=== PATIENT | male | born 1940 | race Caucasian/White ===

== ENCOUNTER 2021-02-26 03:57 | Inpatient (IN) | payer MEDICARE, OTHER ==
[~2021-02-26] VITALS: Ht 180.3 cm; Wt 95.2 kg
[~2021-02-26 03:57] MED LIST: ASPI-612 PO; ATOR20TA PO; DIPH-423 PO; HYT1T PO; LATA2.5D6 RIGHTEYE; PANT40TA39 PO; PER5325T PO
[2021-02-26] MEDS ORDERED: aspirin 81mg tab.chew PO ONE (04:15)
[2021-02-26 04:28] LABS: BASOPHILS % (AUTO) 0.7 % (0-1); EOSINOPHILS # (AUTO) 0.3 X10'3 (0-0.9); EOSINOPHILS % (AUTO) 5.7 % (0-6); HEMATOCRIT 36.2 % (42.0-52.0); HEMOGLOBIN 12.3 g/dl (14.0-17.9); LYMPHOCYTES % (AUTO) 20.3 % (21-51); MEAN CORPUSCULAR HEMOGLOBIN 32.1 PG (27.0-31.0); MEAN CORPUSCULAR HGB CONC 33.9 g/dL (33.0-36.5); MEAN CORPUSCULAR VOLUME 94.6 FL (78-98); MEAN PLATELET VOLUME 8.8 FL (7.4-10.4); MONOCYTES # (AUTO) 0.6 X10'3 (0-0.9); MONOCYTES % (AUTO) 11.8 % (2-12); NEUTROPHILS # (AUTO) 3.1 X10'3 (1.8-7.7); NEUTROPHILS % (AUTO) 61.5 % (42-75); PLATELET COUNT 145 X10'3 (140-440); RED BLOOD COUNT 3.83 X10'6 (4.70-6.10); RED CELL DISTRIBUTION WIDTH 13.2 % (11.5-14.5)
[2021-02-26] MEDS: nitroGLYCERIN 0.4mg SUBLingual tab SL PRN ×3 (04:32→05:10)
[2021-02-26 04:42] LABS: ALANINE AMINOTRANSFERASE 47 U/L (12-78); ALBUMIN 3.3 G/DL (3.4-5.0); ALKALINE PHOSPHATASE 59 IU/L (46-116); ANION GAP 10 (8-16); ASPARTATE AMINO TRANSFERASE 32 U/L (10-37); BILIRUBIN,TOTAL 0.2 MG/DL (0.1-1.0); BLOOD UREA NITROGEN 19 MG/DL (7-18); BUN/CREATININE RATIO 19.8 (5.4-32.0); CALCIUM 8.2 MG/DL (8.5-10.1); CHLORIDE 108 MMOL/L (99-107); CREATININE 0.96 MG/DL (0.60-1.10); GLUCOSE 122 MG/DL (70-104); POTASSIUM 3.6 MMOL/L (3.5-5.1); SODIUM 142 MMOL/L (135-145); TOTAL CARBON DIOXIDE 23.6 MMOL/L (24-32); TOTAL PROTEIN 6.6 G/DL (6.4-8.2); eGFR 75 ML/MIN
[2021-02-26] MEDS ORDERED: ondansetron/PF 4mg/2ml inj IV ONE (05:10)
[2021-02-26] MEDS ORDERED: morphine 4 MG/ML inj SYRINge IV ONE (05:10)
[2021-02-26] MEDS ORDERED: MESSAGE TO NURSING PO ONE ×3 (05:30→19:55)
[2021-02-26] MEDS ORDERED: potassium CL 10mEq/100ml bag 100 ML IV PRN (07:45)
[2021-02-26] MEDS ORDERED: magnesium hydroxide 30ml (MOM) UD suspension PO PRN (07:45)
[2021-02-26] MEDS ORDERED: potassium Cl 20 mEq SR tablet PO PRN ×2 (07:45)
[2021-02-26] MEDS ORDERED: magnesium 4gm in 100ml NS 100 ML IV PRN (07:45)
[2021-02-26] MEDS ORDERED: magnesium Cl slow-release 64mg tablet PO PRN (07:45)
[2021-02-26] MEDS ORDERED: mag hydrox/Alum hydrox/simeth 30ml oral suspension PO PRN (07:45)
[2021-02-26] MEDS ORDERED: morphine 2 MG/ML inj. syringe IV PRN ×2 (07:45)
[2021-02-26] MEDS ORDERED: ondansetron/PF 4mg/2ml inj IV PRN ×2 (07:45→18:00)
[2021-02-26] MEDS ORDERED: acetaminophen 325mg tablet PO PRN (07:45)
[2021-02-26] MEDS ORDERED: magnesium 2GM in 50ml NS 50 ML IV PRN (07:45)
[2021-02-26] MEDS ORDERED: enoxaparin 40mg/0.4ml syringe SUBCUT SCH (08:00)
[2021-02-26] MEDS ORDERED: NORepinephrine 1 mg/ml inj IV ONE (08:00)
[2021-02-26] MEDS ORDERED: sodium bicarbonate (8.4%) 1 mEq/ml syringe ONE (08:00)
[2021-02-26] MEDS: docusate sod 100mg capsule PO SCH ×2 (08:00→23:18)
[2021-02-26] MEDS ORDERED: calcium chloride 100 MG/1 ML inj IV ONE (08:00)
[2021-02-26] MEDS ORDERED: albumin (human) 25% 100 ML IV solution IV ONE (08:00)
[2021-02-26] MEDS ORDERED: papaverine 30 mg/ml 2ml inj. ONE (08:00)
[2021-02-26] MEDS ORDERED: heparin 1,000 units/ml 10ml inj ONE (08:00)
[2021-02-26] MEDS ORDERED: LIDOcaine 2% (20 mg/ml) 5ml cardiac syringe ONE (08:00)
[2021-02-26] MEDS: K and/or MAG REPLACEMENT MC SCH ×2 (08:00→20:00)
[2021-02-26] MEDS ORDERED: MAGNESIUM SULFATE 4 MEQ/ML (5gm/10ml) injection ONE (08:00)
[2021-02-26] MEDS ORDERED: aminocaproic acid 250 MG/1 ML inj. ONE (08:00)
[2021-02-26] MEDS ORDERED: heparin 10,000 units/1 ML INJ ONE (08:00)
[2021-02-26] MEDS ORDERED: potassium Cl 2 mEq/ml inj IV ONE (08:00)
[2021-02-26] MEDS ORDERED: phenylephrine 10mg/ml inj. ONE (08:00)
[2021-02-26] MEDS ORDERED: methylPREDNISolone sod succ 1000mg vial ONE (08:00)
[2021-02-26] MEDS: normal saline 1000ml 1,000 ML IV SCH ×2 (08:40→17:45)
--- NOTE | 2021-02-26 08:51 | NUR ---
STEEL CHECKER AT BEDSIDE.
--- NOTE | 2021-02-26 11:01 | NUR ---
leon tool turret lathe set up operator at bedside.
[2021-02-26] MEDS ORDERED: CLOB30CR11 TOP (13:11)
[2021-02-26] MEDS ORDERED: ALFU10TA10 PO (13:11)
[2021-02-26] MEDS ORDERED: PANT20TA18 PO (13:11)
[2021-02-26] MEDS ORDERED: DOCU-342 PO (13:11)
[2021-02-26] MEDS ORDERED: CHLO473M2 PO (13:11)
[2021-02-26] MEDS ORDERED: NAPR220T67 PO (13:11)
[2021-02-26] MEDS ORDERED: SENN-137 PO (13:11)
[2021-02-26] MEDS ORDERED: clobetasol propionate ointment 15gm TP PRN (13:30)
[2021-02-26] MEDS ORDERED: docusate sod 100mg capsule PO PRN (13:30)
[2021-02-26] MEDS ORDERED: sennosides/docusate sodium tablet PO PRN (13:30)
[2021-02-26 15:00] VITALS: BP 156/81
[2021-02-26] MEDS ORDERED: verapamil 2.5 mg/ml inj IV ONE (15:01)
[2021-02-26] MEDS ORDERED: nitroGLYCERIN-Tridil 50MG/D5W 250 ML IV ONE (15:01)
[2021-02-26] MEDS ORDERED: heparin 1,000unit/ml 10ml vial 10 ML ONE (15:01)
[2021-02-26] MEDS ORDERED: LIDOcaine 1% (10mg/ml)w/preservative injection 20ml MDV ONE (15:01)
[2021-02-26] MEDS ORDERED: iohexol 350MG/ML 100ml bottle IV ONE (15:02)
--- NOTE | 2021-02-26 15:23 | NUR ---
SBAR HANDOFF REPORT GIVEN TO INDRA LEUNG IN PCU .
--- NOTE | 2021-02-26 16:21 | NUR ---
PAGER ID: [phone] MESSAGE: Re: Jeff Wilson. Room: 3028A. Do you want Protonix drip started on Pt? -Juan [facility] #[id number] -Dr. Loza paged concerning med orders
[2021-02-26] MEDS ORDERED: midazolam 1 mg/ML 2ml injection ONE (16:56)
[2021-02-26] MEDS ORDERED: fentaNYL/PF 50MCG/1 ML 2ML syringe ONE (16:56)
[2021-02-26] MEDS ORDERED: iohexol 350 MG/ML 50ML vial IV ONE (17:19)
--- NOTE | 2021-02-26 17:20 | NUR ---
PAGER ID: [phone] MESSAGE: Re: Jeff Wilson. Room: 3028A. Protonix drip ordered for Pt. Do you want this drip started on Pt? -Juan [facility] #[id number] -Dr. Loza paged concerning Med orders.
[2021-02-26] MEDS ORDERED: non-formulary drug (Pantoprazole Sodium (Protonix) 1 TAB) PO SCH (17:30)
--- NOTE | 2021-02-26 17:52 | NUR ---
Pt returned from seed laboratory technician. vitals WNL. Pt will be lying flat for 4 hours. Will continue to monitor as needed.
[2021-02-26 18:00] VITALS: BP_SYST 102; BP_SYST 141; BP_DIAS 65; BP_DIAS 66
[2021-02-26] MEDS ORDERED: chlorhexidine gluconate 15ml Cup****oral rinse MM SCH (18:00)
[2021-02-26] MEDS ORDERED: OXAZEpam 15mg capsule PO PRN (18:00)
[2021-02-26] MEDS ORDERED: proCHLORperazine 10 MG/2 ml inj IV PRN (18:00)
--- NOTE | 2021-02-26 18:00 | NUR ---
[employer] documentation: I have reviewed and agree with all interventions, assessments performed and documented by Suhas LEUNG.
[2021-02-26 18:15] VITALS: BP 136/69
--- NOTE | 2021-02-26 18:15 | NUR ---
Problems reprioritized. Patient report given, questions answered & plan of care reviewed with Myra LEUNG.
--- NOTE | 2021-02-26 19:09 | NUR ---
report from MADHU Martinez. All questions and concerns answered.
[2021-02-26] MEDS ORDERED: dextrose 50%-water 50ml dispensing syringe IV PRN (19:40)
[2021-02-26] MEDS ORDERED: pantoprazole 40MG/NS 100ML BAG 100 ML IV SCH (20:00)
[2021-02-26] MEDS ORDERED: atorvastatin 20mg tablet PO SCH (21:00)
[2021-02-26 22:04] LABS: PARTIAL THROMBOPLASTIN TIME 33 SECONDS (22-32)
[2021-02-26] MEDS ORDERED: heparin 10,000 units/1 ML INJ IV PRN (22:10)
[2021-02-26] MEDS ORDERED: heparin 10,000 units/1 ML INJ IV ONE (22:10)
[2021-02-26] MEDS ORDERED: heparin 25,000 UNIT/250ml bag 250 ML IV SCH (22:10)
[2021-02-26] MEDS: tamsulosin 0.4mg capsule PO SCH (23:18)
[2021-02-27] VITALS (17 sets, daily range): BP systolic 88–139; BP diastolic 46–68
[2021-02-27] MEDS ORDERED: MESSAGE TO NURSING PO ONE ×3 (01:30→05:30)
[2021-02-27 02:19] LABS: ABG HCO3 22.2 mmol/L (22.0-26.0); ABG OXYGEN SATURATION 92.8 % (94-97); ABG PO2 (T) 65.9 mmHg (75.0-100.0); ALLEN'S TEST Modified; FCOHb 0.1 % (0.0-3.9); FMetHb 0.2 % (0.0-1.5); FO2Hb 92.5 % (94-97); TOTAL HEMOGLOBIN 12.4 G/dl (14.0-18.0)
[2021-02-27] MEDS: normal saline 1000ml 1,000 ML IV SCH (03:45)
[2021-02-27] MEDS: Insulin Reg/NS 100units/100mL 100 ML IV SCH (05:30)
[2021-02-27] MEDS ORDERED: insulin glargine (Lantus) pen - multi-dose SQ PRN ×2 (05:30→15:30)
[2021-02-27] MEDS ORDERED: cefazolin/dext.iso 2gm/50ml 50 ML IV ONE (05:30)
[2021-02-27] MEDS ORDERED: MALTODEXTRIN/FRUCTOSE 0.68 KCAL/ML LIQUID 296ML BOTTLE PO ONE (05:30)
[2021-02-27] MEDS ORDERED: gabapentin 400mg capsule PO ONE (05:30)
--- NOTE | 2021-02-27 05:45 | NUR ---
Called Dr. Browning regarding GIDEON and chest tube output and hypotension. Orders received. Addendum: 02/28/21 at 0551 by Felicia Valdez RN Incorrect time. Note time 1944
[2021-02-27] MEDS ORDERED: mupirocin 2% nasal ointment 1gm UD NS ONE (06:35)
[2021-02-27 06:40] LABS: ANION GAP 7 (8-16); BLOOD UREA NITROGEN 15 MG/DL (7-18); BUN/CREATININE RATIO 14.3 (5.4-32.0); CALCIUM 8.1 MG/DL (8.5-10.1); CHLORIDE 108 MMOL/L (99-107); CREATININE 1.05 MG/DL (0.60-1.10); GLUCOSE 98 MG/DL (70-104); POTASSIUM 4.2 MMOL/L (3.5-5.1); SODIUM 140 MMOL/L (135-145); eGFR 68 ML/MIN
[2021-02-27 08:11] LABS: BASOPHILS % (AUTO) 0.6 % (0-1); EOSINOPHILS # (AUTO) 0.2 X10'3 (0-0.9); EOSINOPHILS % (AUTO) 4.2 % (0-6); HEMATOCRIT 32.8 % (42.0-52.0); HEMOGLOBIN 11.5 g/dl (14.0-17.9); LYMPHOCYTES # (AUTO) 0.7 X10'3 (1.1-4.8); LYMPHOCYTES % (AUTO) 15.2 % (21-51); MEAN CORPUSCULAR HEMOGLOBIN 32.8 PG (27.0-31.0); MEAN CORPUSCULAR HGB CONC 35.1 g/dL (33.0-36.5); MEAN CORPUSCULAR VOLUME 93.4 FL (78-98); MEAN PLATELET VOLUME 8.8 FL (7.4-10.4); MONOCYTES # (AUTO) 0.4 X10'3 (0-0.9); MONOCYTES % (AUTO) 8.1 % (2-12); NEUTROPHILS # (AUTO) 3.4 X10'3 (1.8-7.7); NEUTROPHILS % (AUTO) 71.9 % (42-75); PLATELET COUNT 134 X10'3 (140-440); RED BLOOD COUNT 3.51 X10'6 (4.70-6.10); RED CELL DISTRIBUTION WIDTH 13.2 % (11.5-14.5); WHITE BLOOD COUNT 4.7 X10'3 (4.5-11.0)
[2021-02-27] MEDS ORDERED: ROPIVAcaine 0.5% (5mg/ml) 30ml vial ONE (08:41)
[2021-02-27] MEDS ORDERED: heparin 10,000 units/1 ML INJ ONE (08:50)
[2021-02-27] MEDS ORDERED: ringers solution, lacted 1,000 ML IV ONE (08:55)
[2021-02-27] MEDS ORDERED: rocuronium 10mg/ml inj IV ONE (09:04)
[2021-02-27] MEDS ORDERED: etomidate 2mg/ml inj. ONE ×3 (09:04)
[2021-02-27] MEDS ORDERED: fentaNYL /PF 50mcg/ml 5ml ampule ONE ×2 (09:07)
[2021-02-27] MEDS ORDERED: albumin (Human) 5% 250ml 250 ML IV ONE ×4 (09:07→19:40)
[2021-02-27] MEDS ORDERED: MIDAZolam 1mg/ml 10ml vial ONE (09:07)
[2021-02-27] MEDS ORDERED: ceFAZolin 1000mg inj ONE (09:13)
[2021-02-27] MEDS ORDERED: gabapentin 300mg capsule PO ONE (09:35)
[2021-02-27] MEDS ORDERED: nitroGLYCERIN in D5W 50mg/250ml (Tridil) infusion IV ONE (09:45)
[2021-02-27] MEDS ORDERED: amiodarone 50MG/ML inj IV ONE (09:45)
[2021-02-27] MEDS ORDERED: aminocaproic acid 250 MG/1 ML inj. ONE (09:45)
[2021-02-27] MEDS ORDERED: NORepinephrine 8 MG in NS 250 ML BAG (32 mcg/ml) IV ONE (09:45)
[2021-02-27] MEDS ORDERED: sevoflurane 250ml liquid IH ONE (09:45)
[2021-02-27] MEDS ORDERED: protamine sulf. 10mg/ml inj. IV ONE (09:45)
[2021-02-27] MEDS ORDERED: ePHEDrine 50MG/ML INJ. ONE (11:16)
[2021-02-27 11:27] LABS: ABG BASE EXCESS -3.1 mmol/L (-2.0-2.0); ABG HCO3 21.6 mmol/L (22.0-26.0); ABG OXYGEN SATURATION 95.5 % (94-97); ABG PCO2 (T) 35.6 mmHg (35.0-48.0); ABG PO2 (T) 78.5 mmHg (75.0-100.0); FCOHb 0.3 % (0.0-3.9); FMetHb 0.3 % (0.0-1.5); FO2Hb 94.9 % (94-97); PATIENT TEMPERATURE 35.8; TOTAL HEMOGLOBIN 10.9 G/dl (14.0-18.0)
[2021-02-27] MEDS ORDERED: heparin 10,000 units/1 ML INJ IV ONE (11:38)
[2021-02-27] MEDS ORDERED: papaverine 30 mg/ml 2ml inj. IA ONE (11:38)
[2021-02-27] MEDS ORDERED: fentaNYL/PF 50MCG/1 ML 2ML syringe ONE ×2 (13:53)
[2021-02-27] MEDS ORDERED: calcium chloride 100 MG/1 ML inj IV ONE ×3 (14:30→23:35)
[2021-02-27 14:51] LABS: ISTAT ANION GAP 14 (8-12); ISTAT BUN 13 mg/dL (7-18); ISTAT CL 104 mmol/L (99-107); ISTAT CREATININE 0.8 mg/dL (0.8-1.3); ISTAT GLUCOSE 105 mg/dL (70-105); ISTAT HGB 8.8 g/dl (14.0-18.0); ISTAT Hct 26 %PCV (42-52); ISTAT IONIZED CALCIUM 1.18 mmol/L (1.03-1.32); ISTAT K 3.5 mmol/L (3.5-5.1); ISTAT NA 140 mmol/L (135-145); ISTAT TOTAL CO2 22 mmol/L (24-32); ISTAT eGFR > 90 ML/MIN; POC BUN/CREATININE RATIO 16.3 (5.4-32.0)
[2021-02-27] MEDS ORDERED: magnesium hydroxide 30ml (MOM) UD suspension PO PRN (15:30)
[2021-02-27] MEDS ORDERED: metoclopramide 5 mg/ml inj IV PRN (15:30)
[2021-02-27] MEDS ORDERED: sodium chloride 0.45% 1,000 ML IV SCH (15:30)
[2021-02-27] MEDS ORDERED: morphine 4 MG/ML inj SYRINge IV PRN ×2 (15:30)
[2021-02-27] MEDS ORDERED: niCARDipine-NS 40mg/200ml IVPB 200 ML IV PRN (15:30)
[2021-02-27] MEDS ORDERED: dextrose 50%-water 50ml dispensing syringe IV PRN (15:30)
[2021-02-27] MEDS ORDERED: bisacodyl 10mg suppository rectal RC PRN (15:30)
[2021-02-27] MEDS ORDERED: sodium phosphate inj. 30 MMOL in dextrose 5%-water 250 ML IV PRN (15:30)
[2021-02-27] MEDS ORDERED: nitroGLYCERIN-Tridil 50MG/D5W 250 ML IV PRN (15:30)
[2021-02-27] MEDS ORDERED: Neutra Phos packet PO PRN (15:30)
[2021-02-27] MEDS ORDERED: mineral oil 133ml enema RC PRN (15:30)
[2021-02-27] MEDS ORDERED: sodium phosphate inj. 15 MMOL in dextrose 5%-water 250 ML IV PRN (15:30)
[2021-02-27] MEDS ORDERED: DOPamine 400mg/D5W 250ml 250 ML IV PRN (15:30)
[2021-02-27] MEDS ORDERED: magnesium 4gm in 100ml NS 100 ML IV PRN (15:30)
[2021-02-27] MEDS ORDERED: potassium CL 10mEq/100ml bag 100 ML IV PRN (15:30)
[2021-02-27] MEDS ORDERED: acetaminophen 325mg tablet PO PRN ×2 (15:30)
[2021-02-27] MEDS ORDERED: magnesium 2GM in 50ml NS 50 ML IV PRN (15:30)
[2021-02-27] MEDS ORDERED: potassium Cl 20 mEq SR tablet PO PRN (15:30)
[2021-02-27] MEDS ORDERED: magnesium citrate 296ml oral solution PO PRN (15:30)
[2021-02-27] MEDS ORDERED: normal saline 250ml IV soln 250 ML IV PRN (15:30)
[2021-02-27] MEDS ORDERED: ondansetron/PF 4mg/2ml inj IV PRN (15:30)
[2021-02-27] MEDS ORDERED: Insulin Reg/NS 100units/100mL 100 ML IV SCH (15:30)
[2021-02-27 15:57] LABS: ABG BASE EXCESS -3.8 mmol/L (-2.0-2.0); ABG HCO3 21.4 mmol/L (22.0-26.0); ABG OXYGEN SATURATION 97.4 % (94-97); ABG PCO2 (T) 37.2 mmHg (35.0-48.0); ABG PO2 (T) 104.6 mmHg (75.0-100.0); FCOHb 0.3 % (0.0-3.9); FLOW 25 L/min; FMetHb 0.4 % (0.0-1.5); FO2Hb 96.7 % (94-97); PATIENT TEMPERATURE 35.6; PEEP 5 cm H2O; RESPIRATORY RATE 12 b/min; TIDAL VOLUME 700 mL; TOTAL HEMOGLOBIN 10.8 G/dl (14.0-18.0)
[2021-02-27 16:11] LABS: BASOPHILS % (AUTO) 0.1 % (0-1); EOSINOPHILS % (AUTO) 0.5 % (0-6); HEMATOCRIT 29.4 % (42.0-52.0); HEMOGLOBIN 10.1 g/dl (14.0-17.9); LYMPHOCYTES # (AUTO) 0.7 X10'3 (1.1-4.8); LYMPHOCYTES % (AUTO) 6.8 % (21-51); MEAN CORPUSCULAR HEMOGLOBIN 32.7 PG (27.0-31.0); MEAN CORPUSCULAR HGB CONC 34.4 g/dL (33.0-36.5); MEAN CORPUSCULAR VOLUME 95.1 FL (78-98); MEAN PLATELET VOLUME 8.7 FL (7.4-10.4); MONOCYTES # (AUTO) 0.6 X10'3 (0-0.9); MONOCYTES % (AUTO) 5.6 % (2-12); NEUTROPHILS # (AUTO) 8.6 X10'3 (1.8-7.7); PLATELET COUNT 147 X10'3 (140-440); RED BLOOD COUNT 3.09 X10'6 (4.70-6.10); RED CELL DISTRIBUTION WIDTH 12.9 % (11.5-14.5); WHITE BLOOD COUNT 9.9 X10'3 (4.5-11.0)
[2021-02-27 16:24] LABS: ALANINE AMINOTRANSFERASE 43 U/L (12-78); ALBUMIN 3.2 G/DL (3.4-5.0); ALBUMIN/GLOBULIN RATIO 1.5 (1.1-1.5); ALKALINE PHOSPHATASE 46 IU/L (46-116); ANION GAP 13 (8-16); ASPARTATE AMINO TRANSFERASE 64 U/L (10-37); BLOOD UREA NITROGEN 15 MG/DL (7-18); BUN/CREATININE RATIO 15.2 (5.4-32.0); CALCIUM 8.9 MG/DL (8.5-10.1); CHLORIDE 108 MMOL/L (99-107); CREATININE 0.99 MG/DL (0.60-1.10); GLUCOSE 189 MG/DL (70-104); MAGNESIUM 3.5 MG/DL (1.5-2.4); PHOSPHORUS 4.3 MG/DL (2.3-4.5); SODIUM 144 MMOL/L (135-145); TOTAL CARBON DIOXIDE 22.7 MMOL/L (24-32); TOTAL PROTEIN 5.3 G/DL (6.4-8.2); eGFR 73 ML/MIN
[2021-02-27 16:35] LABS: PARTIAL THROMBOPLASTIN TIME 29 SECONDS (22-32)
[2021-02-27] MEDS: albumin (Human) 5% 250ml 250 ML IV PRN ×2 (18:23→19:58)
[2021-02-27] MEDS: ceFAZolin/D5W- 1GM premix 50 ML IV SCH (18:44)
[2021-02-27] MEDS: pantoprazole 40MG/NS 100ML BAG 100 ML IV SCH (18:55)
--- NOTE | 2021-02-27 19:45 | NUR ---
Called Dr. Browning regarding GIDEON and chest tube output and hypotension. Orders received.
[2021-02-27 19:47] LABS: ABG BASE EXCESS -7.3 mmol/L (-2.0-2.0); ABG HCO3 17.3 mmol/L (22.0-26.0); ABG OXYGEN SATURATION 95.2 % (94-97); ABG PCO2 (T) 30.4 mmHg (35.0-48.0); ALLEN'S TEST POSITIVE; FCOHb 0.3 % (0.0-3.9); FMetHb 0.3 % (0.0-1.5); FO2Hb 94.6 % (94-97); PATIENT TEMPERATURE 36.2; PEEP 5 cm H2O; RESPIRATORY RATE 12 b/min; TIDAL VOLUME 700 mL; TOTAL HEMOGLOBIN 9.2 G/dl (14.0-18.0)
[2021-02-27] MEDS ORDERED: sodium bicarbonate (8.4%) 1 mEq/ml syringe ONE (19:59)
[2021-02-27] MEDS: sennosides/docusate sodium tablet PO SCH (20:00)
[2021-02-27] MEDS: mupirocin 2% nasal ointment 1gm UD NS SCH (20:00)
--- NOTE | 2021-02-27 20:00 | NUR ---
Dr. Browning at bedside
[2021-02-27 20:07] LABS: ALANINE AMINOTRANSFERASE 39 U/L (12-78); ALBUMIN 3.3 G/DL (3.4-5.0); ALBUMIN/GLOBULIN RATIO 1.7 (1.1-1.5); ALKALINE PHOSPHATASE 41 IU/L (46-116); ANION GAP 14 (8-16); ASPARTATE AMINO TRANSFERASE 74 U/L (10-37); BILIRUBIN,TOTAL 0.6 MG/DL (0.1-1.0); BLOOD UREA NITROGEN 14 MG/DL (7-18); BUN/CREATININE RATIO 9.9 (5.4-32.0); CALCIUM 8.4 MG/DL (8.5-10.1); CHLORIDE 109 MMOL/L (99-107); CREATININE 1.41 MG/DL (0.60-1.10); GLUCOSE 166 MG/DL (70-104); MAGNESIUM 3.1 MG/DL (1.5-2.4); PHOSPHORUS 3.6 MG/DL (2.3-4.5); SODIUM 145 MMOL/L (135-145); TOTAL PROTEIN 5.3 G/DL (6.4-8.2); eGFR 48 ML/MIN
[2021-02-27 20:09] LABS: BASOPHILS % (AUTO) 0.1 % (0-1); EOSINOPHILS % (AUTO) 0.1 % (0-6); HEMATOCRIT 25.1 % (42.0-52.0); HEMOGLOBIN 8.5 g/dl (14.0-17.9); LYMPHOCYTES # (AUTO) 0.4 X10'3 (1.1-4.8); LYMPHOCYTES % (AUTO) 4.1 % (21-51); MEAN CORPUSCULAR HEMOGLOBIN 32.5 PG (27.0-31.0); MEAN CORPUSCULAR HGB CONC 33.9 g/dL (33.0-36.5); MEAN PLATELET VOLUME 8.9 FL (7.4-10.4); MONOCYTES # (AUTO) 0.5 X10'3 (0-0.9); MONOCYTES % (AUTO) 4.6 % (2-12); NEUTROPHILS # (AUTO) 9.4 X10'3 (1.8-7.7); NEUTROPHILS % (AUTO) 91.1 % (42-75); PLATELET COUNT 143 X10'3 (140-440); RED BLOOD COUNT 2.62 X10'6 (4.70-6.10); RED CELL DISTRIBUTION WIDTH 13.3 % (11.5-14.5); WHITE BLOOD COUNT 10.3 X10'3 (4.5-11.0)
[2021-02-27] MEDS ORDERED: amiodarone/D5 360MG/200ML BAG 200 ML IV ONE (20:09)
[2021-02-27] MEDS: amiodarone/D5 360MG/200ML BAG 200 ML IV SCH (20:10)
[2021-02-27] MEDS ORDERED: magnesium 2GM in 50ml NS 50 ML IV ONE (20:15)
[2021-02-27] MEDS: vancomycin/NS 1 GM ADD-VANTAGE 250 ML IV SCH (20:26)
[2021-02-27] MEDS: DEXTROSE 5% IV ONE ×2 (20:30→23:37)
[2021-02-27] MEDS ORDERED: dexmedetomidine/D5W 100mL 100 ML IV PRN (20:30)
[2021-02-27] MEDS: CALCIUM CHLORIDE IV ONE ×2 (20:30→23:37)
[2021-02-27] MEDS: WATER IV ONE ×2 (20:30→23:37)
[2021-02-27] MEDS: tamsulosin 0.4mg capsule PO SCH (21:00)
[2021-02-27] MEDS: atorvastatin 10mg tablet PO SCH (21:00)
[2021-02-27] MEDS: gabapentin 300mg capsule PO SCH (21:00)
[2021-02-27 21:05] LABS: ABG BASE EXCESS -7.9 mmol/L (-2.0-2.0); ABG HCO3 16.9 mmol/L (22.0-26.0); ABG OXYGEN SATURATION 94.8 % (94-97); ABG PO2 (T) 77.6 mmHg (75.0-100.0); ALLEN'S TEST POSITIVE; FCOHb 0.3 % (0.0-3.9); FMetHb 0.5 % (0.0-1.5); PEEP 5 cm H2O; RESPIRATORY RATE 12 b/min; TIDAL VOLUME 700 mL; TOTAL HEMOGLOBIN 7.9 G/dl (14.0-18.0)
[2021-02-27] MEDS ORDERED: sodium bicarbonate (8.4%) 1 mEq/ml syringe IV ONE (21:20)
[2021-02-27] MEDS: potassium Cl 20mEq/100mL bag 100 ML IV PRN ×2 (21:57→23:37)
[2021-02-27] MEDS ORDERED: furosemide 20 MG/2 ML vial IV ONE (22:15)
--- NOTE | 2021-02-27 22:15 | NUR ---
Called Dr. Browning regarding GIDEON and chest tube output and hypotension. Orders received.
[2021-02-28] VITALS (29 sets, daily range): BP systolic 86–144; BP diastolic 46–74
[2021-02-28] MEDS: ceFAZolin/D5W- 1GM premix 50 ML IV SCH ×3 (00:32→16:02)
[2021-02-28 02:13] LABS: BASOPHILS % (AUTO) 0.1 % (0-1); EOSINOPHILS % (AUTO) 0.1 % (0-6); HEMATOCRIT 22.5 % (42.0-52.0); LYMPHOCYTES # (AUTO) 0.3 X10'3 (1.1-4.8); LYMPHOCYTES % (AUTO) 4.8 % (21-51); MEAN CORPUSCULAR HEMOGLOBIN 32.3 PG (27.0-31.0); MEAN CORPUSCULAR HGB CONC 35.6 g/dL (33.0-36.5); MEAN CORPUSCULAR VOLUME 90.6 FL (78-98); MEAN PLATELET VOLUME 8.9 FL (7.4-10.4); MONOCYTES # (AUTO) 0.3 X10'3 (0-0.9); MONOCYTES % (AUTO) 4.9 % (2-12); NEUTROPHILS # (AUTO) 5.5 X10'3 (1.8-7.7); NEUTROPHILS % (AUTO) 90.1 % (42-75); PLATELET COUNT 128 X10'3 (140-440); RED BLOOD COUNT 2.48 X10'6 (4.70-6.10); RED CELL DISTRIBUTION WIDTH 14.5 % (11.5-14.5); WHITE BLOOD COUNT 6.1 X10'3 (4.5-11.0)
[2021-02-28 02:22] LABS: PARTIAL THROMBOPLASTIN TIME 29 SECONDS (22-32)
[2021-02-28 02:28] LABS: ALANINE AMINOTRANSFERASE 44 U/L (12-78); ALBUMIN 3.4 G/DL (3.4-5.0); ALBUMIN/GLOBULIN RATIO 1.6 (1.1-1.5); ALKALINE PHOSPHATASE 37 IU/L (46-116); ANION GAP 6 (8-16); ASPARTATE AMINO TRANSFERASE 78 U/L (10-37); BILIRUBIN,TOTAL 0.4 MG/DL (0.1-1.0); BLOOD UREA NITROGEN 16 MG/DL (7-18); CALCIUM 9.6 MG/DL (8.5-10.1); CHLORIDE 113 MMOL/L (99-107); CHOL/HDL RATIO 2.3 (0.00-4.99); CHOLESTEROL 80 MG/DL (0-200); CREATININE 1.23 MG/DL (0.60-1.10); GLUCOSE 127 MG/DL (70-104); HDL CHOLESTEROL 35 MG/DL (35-60); LDL CHOLESTEROL 32 MG/DL (50-100); MAGNESIUM 2.7 MG/DL (1.5-2.4); PHOSPHORUS 2.4 MG/DL (2.3-4.5); POTASSIUM 3.9 MMOL/L (3.5-5.1); SODIUM 145 MMOL/L (135-145); TOTAL CARBON DIOXIDE 26.2 MMOL/L (24-32); TOTAL PROTEIN 5.5 G/DL (6.4-8.2); TRIGLYCERIDES 34 MG/DL (20-135); eGFR 57 ML/MIN
[2021-02-28] MEDS: potassium Cl 20mEq/100mL bag 100 ML IV PRN ×4 (03:31→12:47)
[2021-02-28 04:00] LABS: ABG BASE EXCESS 0.7 mmol/L (-2.0-2.0); ABG HCO3 25.1 mmol/L (22.0-26.0); ABG OXYGEN SATURATION 96.6 % (94-97); ABG PCO2 (T) 38.6 mmHg (35.0-48.0); FCOHb 0.3 % (0.0-3.9); FMetHb 0.2 % (0.0-1.5); FO2Hb 96.1 % (94-97); PATIENT TEMPERATURE 36.7; PEEP 5 cm H2O; TOTAL HEMOGLOBIN 8.6 G/dl (14.0-18.0)
--- NOTE | 2021-02-28 04:15 | NUR ---
Pt extubated to NC 2L. Tolerated well.
--- NOTE | 2021-02-28 04:30 | NUR ---
Called Dr. Browning regarding hypotension and decrease in H&H. Orders received.
[2021-02-28] MEDS: HYDROcodone/acetaminophen 10/325mg tab PO PRN ×4 (04:37→19:27)
[2021-02-28] MEDS: albumin (Human) 5% 250ml 250 ML IV PRN (04:43)
[2021-02-28] MEDS ORDERED: famotidine/PF 10 mg/ml inj IV ONE (06:00)
[2021-02-28] MEDS ORDERED: insulin Lispro (HumaLOG) vial - multi-dose SQ SCH (07:25)
[2021-02-28] MEDS: vancomycin/NS 1 GM ADD-VANTAGE 250 ML IV SCH ×2 (08:39→19:28)
[2021-02-28] MEDS: gabapentin 300mg capsule PO SCH ×3 (08:39→21:01)
[2021-02-28] MEDS: aspirin 325mg tablet, delayed-release (Ecotrin) PO SCH (08:39)
[2021-02-28] MEDS: sennosides/docusate sodium tablet PO SCH ×2 (08:39→19:27)
[2021-02-28] MEDS: mupirocin 2% nasal ointment 1gm UD NS SCH ×2 (08:39→19:28)
[2021-02-28] MEDS: metoprolol tartrate 12.5mg (1/2 tablet) PO SCH ×2 (08:40→19:26)
[2021-02-28] MEDS: amiodarone/D5 360MG/200ML BAG 200 ML IV SCH (08:41)
--- NOTE | 2021-02-28 09:00 | NUR ---
Dr. Browning at bedside rounding on patient. Orders to D/C PA and ART lines. Also, patient tolerating off of insulin gtt since turning off; orders to d/c accuchecks as "patient is not a diabetic."
[2021-02-28] MEDS ORDERED: amiodarone/D5 360MG/200ML BAG 200 ML IV SCH (09:22)
[2021-02-28] MEDS: amiodarone 200mg tablet PO SCH ×2 (09:41→19:27)
[2021-02-28 10:27] LABS: HEMATOCRIT 25.1 % (42.0-52.0); HEMOGLOBIN 8.8 g/dl (14.0-17.9); MEAN CORPUSCULAR HEMOGLOBIN 31.5 PG (27.0-31.0); MEAN CORPUSCULAR HGB CONC 35.3 g/dL (33.0-36.5); MEAN CORPUSCULAR VOLUME 89.3 FL (78-98); MEAN PLATELET VOLUME 8.8 FL (7.4-10.4); PLATELET COUNT 122 X10'3 (140-440); RED BLOOD COUNT 2.81 X10'6 (4.70-6.10); RED CELL DISTRIBUTION WIDTH 15.9 % (11.5-14.5); WHITE BLOOD COUNT 8.7 X10'3 (4.5-11.0)
--- NOTE | 2021-02-28 12:43 | NUR ---
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 Addendum: 02/28/21 at [address] Amended: Links added.
[2021-02-28] MEDS: Insulin Reg/NS 100units/100mL 100 ML IV SCH (14:50)
--- NOTE | 2021-02-28 15:00 | NUR ---
Urine output decreasing to 20ml/hour for past several hours. Dr. Browning notified and will come this afternoon to assess the patient. No new orders a this time.
[2021-02-28] MEDS: pantoprazole 40MG/NS 100ML BAG 100 ML IV SCH (15:30)
[2021-02-28] MEDS ORDERED: aspirin 81mg, enteric-coated 1 TAB TABLET.DR PO ONE (17:25)
[2021-02-28] MEDS ORDERED: albumin (Human) 5% 250ml 250 ML IV PRN (17:35)
[2021-02-28] MEDS: tamsulosin 0.4mg capsule PO SCH (21:01)
[2021-02-28] MEDS: atorvastatin 10mg tablet PO SCH (21:01)
[2021-03-01] VITALS (20 sets, daily range): BP systolic 93–127; BP diastolic 50–69
--- NOTE | 2021-03-01 00:40 | NUR ---
Pt sleeping soundly. noted O2sat 88-90%. 2LNC placed at this time with sats to 97% noted
[2021-03-01] MEDS: ceFAZolin/D5W- 1GM premix 50 ML IV SCH (00:44)
[2021-03-01 03:32] LABS: ALBUMIN 3.3 G/DL (3.4-5.0); ANION GAP 6 (8-16); BLOOD UREA NITROGEN 28 MG/DL (7-18); CALCIUM 8.3 MG/DL (8.5-10.1); CHLORIDE 104 MMOL/L (99-107); CREATININE 1.22 MG/DL (0.60-1.10); GLUCOSE 117 MG/DL (70-104); MAGNESIUM 2.2 MG/DL (1.5-2.4); PHOSPHORUS 4.3 MG/DL (2.3-4.5); POTASSIUM 5.2 MMOL/L (3.5-5.1); SODIUM 136 MMOL/L (135-145); TOTAL CARBON DIOXIDE 26.1 MMOL/L (24-32); eGFR 57 ML/MIN
[2021-03-01 03:51] LABS: BASOPHILS % (AUTO) 0 % (0-1); EOSINOPHILS % (AUTO) 0 % (0-6); HEMATOCRIT 24.8 % (42.0-52.0); HEMOGLOBIN 8.5 g/dl (14.0-17.9); LYMPHOCYTES # (AUTO) 0.5 X10'3 (1.1-4.8); LYMPHOCYTES % (AUTO) 5.2 % (21-51); MEAN CORPUSCULAR HEMOGLOBIN 31.2 PG (27.0-31.0); MEAN CORPUSCULAR HGB CONC 34.4 g/dL (33.0-36.5); MEAN CORPUSCULAR VOLUME 90.8 FL (78-98); MEAN PLATELET VOLUME 9.6 FL (7.4-10.4); MONOCYTES # (AUTO) 0.8 X10'3 (0-0.9); MONOCYTES % (AUTO) 8.6 % (2-12); NEUTROPHILS # (AUTO) 8.2 X10'3 (1.8-7.7); NEUTROPHILS % (AUTO) 86.2 % (42-75); PLATELET COUNT 120 X10'3 (140-440); RED BLOOD COUNT 2.74 X10'6 (4.70-6.10); RED CELL DISTRIBUTION WIDTH 16.9 % (11.5-14.5); WHITE BLOOD COUNT 9.5 X10'3 (4.5-11.0)
--- NOTE | 2021-03-01 06:15 | NUR ---
Patient in room ICU 2044. I have received report from Mary LEUNG and had the opportunity to ask questions and assume patient care.
[2021-03-01] MEDS: gabapentin 300mg capsule PO SCH ×2 (07:02→12:50)
[2021-03-01] MEDS: metoprolol tartrate 12.5mg (1/2 tablet) PO SCH ×2 (07:02→20:48)
[2021-03-01] MEDS: sennosides/docusate sodium tablet PO SCH ×2 (07:02→20:47)
[2021-03-01] MEDS: mupirocin 2% nasal ointment 1gm UD NS SCH (07:03)
[2021-03-01] MEDS: amiodarone 200mg tablet PO SCH ×2 (07:03→20:47)
[2021-03-01] MEDS: aspirin 325mg tablet, delayed-release (Ecotrin) PO SCH (07:03)
[2021-03-01] MEDS: pantoprazole 40mg Tablet.DR PO SCH (07:03)
[2021-03-01] MEDS ORDERED: furosemide 20 MG/2 ML vial IV ONE ×2 (08:20→09:15)
[2021-03-01] MEDS: azithromycin 250mg tablet PO SCH ×2 (09:01→20:46)
[2021-03-01] MEDS ORDERED: potassium Cl 40MEQ/1/2NS 520ml 520 ML IV PRN (09:15)
[2021-03-01] MEDS ORDERED: magnesium 4gm in 100ml NS 100 ML IV PRN (09:15)
[2021-03-01] MEDS ORDERED: potassium CL 10mEq/100ml bag 100 ML IV PRN (09:15)
[2021-03-01] MEDS ORDERED: potassium Cl 20 mEq SR tablet PO PRN (09:15)
[2021-03-01] MEDS ORDERED: potassium Cl 40MEQ/250ML bag 250 ML IV PRN (09:15)
[2021-03-01] MEDS ORDERED: potassium Cl 20mEq/100mL bag 100 ML IV PRN (09:15)
[2021-03-01] MEDS ORDERED: magnesium 2GM in 50ml NS 50 ML IV PRN (09:15)
--- NOTE | 2021-03-01 14:07 | NUR ---
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 Provided pt w/ written and verbal CABG nutrition therapy education w/ RD contact info. Pt receptive of information. Addendum: 03/01/21 at [address] Amended: Links added.
--- NOTE | 2021-03-01 15:42 | NUR ---
Problems reprioritized. Patient report given, questions answered & plan of care reviewed with Lisa LEUNG.
--- NOTE | 2021-03-01 16:00 | NUR ---
Received to room 308A via w/c. Transfer to bed assist x1, pt using heart pillow.
--- NOTE | 2021-03-01 18:29 | NUR ---
Report to Jeanne LEUNG
--- NOTE | 2021-03-01 18:55 | NUR ---
Patient in room MED 308. I have received report from MARK LEUNG and had the opportunity to ask questions and assume patient care. Addendum: 03/01/21 at 1856 by Jeanne Ricardo RN Amended: Links added.
[2021-03-01] MEDS ORDERED: clarithromycin 250mg tablet PO SCH (20:00)
[2021-03-01] MEDS: potassium Cl 20 mEq SR tablet PO SCH (20:00)
[2021-03-01] MEDS: magnesium Cl slow-release 64mg tablet PO SCH (20:46)
[2021-03-01] MEDS: lactobacillus rhamnosus 10,000 MMU CELLS/CAPSULE PO SCH (20:46)
[2021-03-01] MEDS: atorvastatin 10mg tablet PO SCH (20:47)
[2021-03-01] MEDS: tamsulosin 0.4mg capsule PO SCH (20:47)
--- NOTE | 2021-03-02 00:37 | NUR ---
resting eyes closed without s7s of distress provena in place and noted to suction on sternal wound vac. left right mckenna's in place draining sanginous fluid from old chest tube sites. noted low abd dressing in place.
[2021-03-02] MEDS: HYDROcodone/acetaminophen 10/325mg tab PO PRN ×3 (01:09→20:38)
[2021-03-02 02:00] VITALS: BP 103/52
[2021-03-02 06:00] VITALS: BP 95/51
[2021-03-02 06:20] LABS: BASOPHILS % (AUTO) 0.1 % (0-1); EOSINOPHILS # (AUTO) 0.1 X10'3 (0-0.9); EOSINOPHILS % (AUTO) 1.3 % (0-6); HEMOGLOBIN 8.1 g/dl (14.0-17.9); LYMPHOCYTES # (AUTO) 0.8 X10'3 (1.1-4.8); LYMPHOCYTES % (AUTO) 10.6 % (21-51); MEAN CORPUSCULAR HEMOGLOBIN 31.1 PG (27.0-31.0); MEAN CORPUSCULAR HGB CONC 33.9 g/dL (33.0-36.5); MEAN CORPUSCULAR VOLUME 91.7 FL (78-98); MEAN PLATELET VOLUME 10.3 FL (7.4-10.4); MONOCYTES # (AUTO) 0.8 X10'3 (0-0.9); MONOCYTES % (AUTO) 10.3 % (2-12); NEUTROPHILS # (AUTO) 5.7 X10'3 (1.8-7.7); NEUTROPHILS % (AUTO) 77.7 % (42-75); PLATELET COUNT 100 X10'3 (140-440); RED BLOOD COUNT 2.62 X10'6 (4.70-6.10); RED CELL DISTRIBUTION WIDTH 15.6 % (11.5-14.5); WHITE BLOOD COUNT 7.4 X10'3 (4.5-11.0)
--- NOTE | 2021-03-02 06:38 | NUR ---
Problems reprioritized. Patient report given, questions answered & plan of care reviewed with CHIKIS LEUNG. Addendum: 03/02/21 at 0638 by Jeanne Ricardo RN Amended: Links added.
[2021-03-02 07:15] LABS: ALBUMIN 2.9 G/DL (3.4-5.0); ANION GAP 6 (8-16); BLOOD UREA NITROGEN 40 MG/DL (7-18); BUN/CREATININE RATIO 28.2 (5.4-32.0); CALCIUM 8.1 MG/DL (8.5-10.1); CHLORIDE 100 MMOL/L (99-107); CREATININE 1.42 MG/DL (0.60-1.10); GLUCOSE 104 MG/DL (70-104); POTASSIUM 4.3 MMOL/L (3.5-5.1); SODIUM 131 MMOL/L (135-145); TOTAL CARBON DIOXIDE 25.2 MMOL/L (24-32); eGFR 48 ML/MIN
[2021-03-02] MEDS: aspirin 325mg tablet, delayed-release (Ecotrin) PO SCH (07:48)
[2021-03-02] MEDS: magnesium Cl slow-release 64mg tablet PO SCH ×2 (07:49→20:39)
[2021-03-02] MEDS: sennosides/docusate sodium tablet PO SCH ×2 (07:49→20:38)
[2021-03-02] MEDS: lactobacillus rhamnosus 10,000 MMU CELLS/CAPSULE PO SCH ×2 (07:49→20:37)
[2021-03-02] MEDS: pantoprazole 40mg Tablet.DR PO SCH (07:49)
[2021-03-02] MEDS: amiodarone 200mg tablet PO SCH ×2 (07:49→20:37)
[2021-03-02] MEDS: potassium Cl 20 mEq SR tablet PO SCH ×2 (07:50→20:37)
[2021-03-02] MEDS: azithromycin 250mg tablet PO SCH ×2 (07:50→20:38)
[2021-03-02] MEDS: metoprolol tartrate 12.5mg (1/2 tablet) PO SCH ×2 (08:00→20:41)
--- NOTE | 2021-03-02 10:57 | NUR ---
dc'd mercer catheter per md order. pt tolerated well. will monitor for urine output.
[2021-03-02 11:00] VITALS: BP 100/54
[2021-03-02 11:06] LABS: ABG PCO2 39.2 mmHg (35.0-48.0)
[2021-03-02 11:07] LABS: ABG BASE EXCESS -1.3 mmol/L (-2.0-2.0); ABG HCO3 23.5 mmol/L (22.0-26.0); FCOHb 0.3 % (0.0-3.9); FMetHb 0.3 % (0.0-1.5); FO2Hb 98.9 % (94-97)
[2021-03-02 11:08] LABS: K (ABG) 4.8 mmol/L (3.5-5.0)
[2021-03-02 11:09] LABS: CL (ABG) 105 mmol/L (98-110); GLUCOSE (ABG) 107 mg/dl (70-105); IONIZED CA (ABG) 1.03 mmol/L (1.10-1.43)
[2021-03-02 12:24] LABS: ABG PCO2 35.7 mmHg (35.0-48.0)
[2021-03-02 12:25] LABS: ABG BASE EXCESS -4.1 mmol/L (-2.0-2.0); ABG HCO3 20.5 mmol/L (22.0-26.0); FCOHb 0.6 % (0.0-3.9); FMetHb 0.3 % (0.0-1.5); FO2Hb 98.8 % (94-97)
[2021-03-02 12:26] LABS: CL (ABG) 106 mmol/L (98-110); GLUCOSE (ABG) 135 mg/dl (70-105); IONIZED CA (ABG) 1.04 mmol/L (1.10-1.43); K (ABG) 4.3 mmol/L (3.5-5.0)
[2021-03-02 12:30] LABS: ABG BASE EXCESS -1.7 mmol/L (-2.0-2.0); ABG HCO3 23.8 mmol/L (22.0-26.0)
[2021-03-02 12:31] LABS: FMetHb 0.3 % (0.0-1.5); FO2Hb 98.4 % (94-97); TOTAL HEMOGLOBIN 6.9 G/dl (14.0-18.0)
[2021-03-02 12:32] LABS: CL (ABG) 103 mmol/L (98-110); GLUCOSE (ABG) 144 mg/dl (70-105); IONIZED CA (ABG) 1.31 mmol/L (1.10-1.43); K (ABG) 4.2 mmol/L (3.5-5.0)
[2021-03-02 15:00] VITALS: BP 120/65
[2021-03-02] MEDS ORDERED: ondansetron 4mg rapidly disintigrating tab PO PRN (16:15)
[2021-03-02 18:00] VITALS: BP 111/61
--- NOTE | 2021-03-02 18:22 | NUR ---
Patient in room MED 308. I have received report from CHIKIS LEUNG and had the opportunity to ask questions and assume patient care. Addendum: 03/02/21 at 1823 by Jeanne Ricardo RN Amended: Links added.
--- NOTE | 2021-03-02 18:24 | NUR ---
Patient in room MED 308. I have received report from CHIKIS LEUNG and had the opportunity to ask questions and assume patient care. Addendum: 03/02/21 at 1825 by Jeanne Ricardo RN Amended: Links added.
[2021-03-02] MEDS: tamsulosin 0.4mg capsule PO SCH (20:37)
[2021-03-02] MEDS: atorvastatin 10mg tablet PO SCH (20:37)
[2021-03-02 22:00] VITALS: BP 125/67
[2021-03-03 02:00] VITALS: BP 110/58
[2021-03-03 06:00] VITALS: BP 121/63
[2021-03-03 06:02] LABS: BASOPHILS % (AUTO) 0.2 % (0-1); EOSINOPHILS # (AUTO) 0.3 X10'3 (0-0.9); HEMATOCRIT 23.5 % (42.0-52.0); HEMOGLOBIN 8.1 g/dl (14.0-17.9); LYMPHOCYTES # (AUTO) 0.6 X10'3 (1.1-4.8); LYMPHOCYTES % (AUTO) 9.1 % (21-51); MEAN CORPUSCULAR HEMOGLOBIN 31.4 PG (27.0-31.0); MEAN CORPUSCULAR HGB CONC 34.4 g/dL (33.0-36.5); MEAN CORPUSCULAR VOLUME 91.4 FL (78-98); MEAN PLATELET VOLUME 10.1 FL (7.4-10.4); MONOCYTES # (AUTO) 0.5 X10'3 (0-0.9); MONOCYTES % (AUTO) 7.5 % (2-12); NEUTROPHILS % (AUTO) 78.2 % (42-75); PLATELET COUNT 92 X10'3 (140-440); RED BLOOD COUNT 2.57 X10'6 (4.70-6.10); RED CELL DISTRIBUTION WIDTH 15.4 % (11.5-14.5); WHITE BLOOD COUNT 6.4 X10'3 (4.5-11.0)
[2021-03-03 06:09] LABS: ALBUMIN 2.9 G/DL (3.4-5.0); ANION GAP 5 (8-16); BLOOD UREA NITROGEN 32 MG/DL (7-18); BUN/CREATININE RATIO 23.9 (5.4-32.0); CALCIUM 8.2 MG/DL (8.5-10.1); CHLORIDE 104 MMOL/L (99-107); CREATININE 1.34 MG/DL (0.60-1.10); GLUCOSE 104 MG/DL (70-104); POTASSIUM 4.6 MMOL/L (3.5-5.1); SODIUM 138 MMOL/L (135-145); TOTAL CARBON DIOXIDE 28.8 MMOL/L (24-32); eGFR 51 ML/MIN
--- NOTE | 2021-03-03 06:25 | NUR ---
Problems reprioritized. Patient report given, questions answered & plan of care reviewed with LOBITO LEUNG. Addendum: 03/03/21 at 0626 by Jeanne Ricardo RN Amended: Links added.
[2021-03-03] MEDS ORDERED: magnesium citrate 296ml oral solution PO ONE (08:30)
[2021-03-03] MEDS: metoprolol tartrate 12.5mg (1/2 tablet) PO SCH ×2 (08:31→20:02)
[2021-03-03] MEDS: potassium Cl 20 mEq SR tablet PO SCH ×2 (08:31→20:00)
[2021-03-03] MEDS: lactobacillus rhamnosus 10,000 MMU CELLS/CAPSULE PO SCH ×2 (08:31→20:02)
[2021-03-03] MEDS: aspirin 325mg tablet, delayed-release (Ecotrin) PO SCH (08:32)
[2021-03-03] MEDS: sennosides/docusate sodium tablet PO SCH ×2 (08:32→20:03)
[2021-03-03] MEDS: pantoprazole 40mg Tablet.DR PO SCH (08:32)
[2021-03-03] MEDS: azithromycin 250mg tablet PO SCH ×2 (08:32→20:03)
[2021-03-03] MEDS: amiodarone 200mg tablet PO SCH ×2 (08:32→20:02)
[2021-03-03] MEDS: magnesium Cl slow-release 64mg tablet PO SCH ×2 (08:32→20:00)
[2021-03-03] MEDS ORDERED: HYDR-3972 PO (08:33)
[2021-03-03] MEDS ORDERED: AZI25OT PO (08:33)
[2021-03-03] MEDS ORDERED: AMIO200T67 PO (08:33)
[2021-03-03] MEDS ORDERED: magnesium hydroxide 30ml (MOM) UD suspension PO ONE (09:10)
[2021-03-03 10:00] VITALS: BP 101/64
[2021-03-03] MEDS: HYDROcodone/acetaminophen 10/325mg tab PO PRN (11:56)
--- NOTE | 2021-03-03 13:40 | NUR ---
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 Currently on Regular/NCS diet w/ moderate PO intake, avg 53% x 8 meals partially meeting needs. Pt can benefit from [employer] to assist w/ wound healing; pending physician approval. [facility] 02/26 receiving routine and PRN bowel care. Will continue to monitor and make recommendations as appropriate. Recs: 1. Continue Regular/NCS diet as tolerated 2. [employer]inder smoothies BIDBD; pending physician approval 3. Bowel care per rx 4. Weekly wts Addendum: 03/03/21 at [address] Amended: Links added.
[2021-03-03 14:00] VITALS: BP 145/76
[2021-03-03] MEDS ORDERED: JUVEN Smoothie Arginine/Glut./Ca2+Bmb (Juven 19.3pkt) 240ml cup PO SCH (17:30)
[2021-03-03 18:00] VITALS: BP 141/66
[2021-03-03] MEDS: tamsulosin 0.4mg capsule PO SCH (20:12)
[2021-03-03] MEDS: atorvastatin 10mg tablet PO SCH (20:12)
[2021-03-03 22:00] VITALS: BP 132/69
[2021-03-03] MEDS ORDERED: temazepam 15mg capsule PO PRN (23:15)
[2021-03-04 02:00] VITALS: BP 103/56
[2021-03-04 06:27] LABS: BASOPHILS % (AUTO) 0.2 % (0-1); EOSINOPHILS # (AUTO) 0.3 X10'3 (0-0.9); EOSINOPHILS % (AUTO) 3.8 % (0-6); HEMATOCRIT 24.5 % (42.0-52.0); HEMOGLOBIN 8.5 g/dl (14.0-17.9); LYMPHOCYTES # (AUTO) 0.5 X10'3 (1.1-4.8); MEAN CORPUSCULAR HEMOGLOBIN 31.6 PG (27.0-31.0); MEAN CORPUSCULAR HGB CONC 34.9 g/dL (33.0-36.5); MEAN CORPUSCULAR VOLUME 90.6 FL (78-98); MEAN PLATELET VOLUME 10.5 FL (7.4-10.4); MONOCYTES # (AUTO) 0.6 X10'3 (0-0.9); NEUTROPHILS # (AUTO) 5.4 X10'3 (1.8-7.7); PLATELET COUNT 105 X10'3 (140-440); RED CELL DISTRIBUTION WIDTH 15.1 % (11.5-14.5); WHITE BLOOD COUNT 6.9 X10'3 (4.5-11.0)
[2021-03-04 06:29] LABS: ALBUMIN 2.8 G/DL (3.4-5.0); ANION GAP 5 (8-16); BLOOD UREA NITROGEN 21 MG/DL (7-18); BUN/CREATININE RATIO 20.6 (5.4-32.0); CALCIUM 8.4 MG/DL (8.5-10.1); CHLORIDE 103 MMOL/L (99-107); CREATININE 1.02 MG/DL (0.60-1.10); GLUCOSE 92 MG/DL (70-104); POTASSIUM 4.1 MMOL/L (3.5-5.1); SODIUM 137 MMOL/L (135-145); TOTAL CARBON DIOXIDE 28.8 MMOL/L (24-32); eGFR 70 ML/MIN
--- NOTE | 2021-03-04 06:37 | NUR ---
Patient in room MED 308. I have received report from Michael LEUNG and had the opportunity to ask questions and assume patient care.
[2021-03-04 06:38] VITALS: BP 118/66
[2021-03-04 07:44] VITALS: BP_SYST 118
[2021-03-04] MEDS: amiodarone 200mg tablet PO SCH (07:44)
[2021-03-04] MEDS: metoprolol tartrate 12.5mg (1/2 tablet) PO SCH (07:44)
[2021-03-04] MEDS: azithromycin 250mg tablet PO SCH (07:45)
[2021-03-04] MEDS: sennosides/docusate sodium tablet PO SCH ×2 (07:45→07:47)
[2021-03-04] MEDS: potassium Cl 20 mEq SR tablet PO SCH (07:45)
[2021-03-04] MEDS: lactobacillus rhamnosus 10,000 MMU CELLS/CAPSULE PO SCH (07:46)
[2021-03-04] MEDS: magnesium Cl slow-release 64mg tablet PO SCH (07:46)
[2021-03-04] MEDS: aspirin 325mg tablet, delayed-release (Ecotrin) PO SCH (07:46)
[2021-03-04] MEDS: pantoprazole 40mg Tablet.DR PO SCH (07:46)
--- NOTE | 2021-03-04 10:57 | NUR ---
Pt has dc orders, pt in no distress, monitor and IV removed, with canula intact. Instructions given
--- NOTE | 2021-03-04 12:27 | NUR ---
pT LEFT VIA WHEELCHAIR SON AT SIDE , PT IN NO DISTRESS. BELONGINGS SENT HOME WITH PATIENT
== END 2021-03-04 12:10 | disposition home or self-care (01) | DRG 233 ==
LOC: ER 03:58 → ED HOLD 07:46 → PCU 3S 16:12 → ICU 2S 02-27 15:32 → MED 3N 03-01 16:00
PROVIDERS: ADMIT Family Medicine; ATTEND Thoracic Surgery (Cardiothoracic Vascular Surgery)
PROC: 4A023N7 Measurement of Cardiac Sampling and Pressure, Left Heart, Percutaneous Approach (ICD-10-PCS; principal; 2021-02-26)
PROC: B2111ZZ Fluoroscopy of Multiple Coronary Arteries using Low Osmolar Contrast (ICD-10-PCS; 2021-02-26)
PROC: B2151ZZ Fluoroscopy of Left Heart using Low Osmolar Contrast (ICD-10-PCS; 2021-02-26)
PROC: 02100Z9 Bypass Coronary Artery, One Artery from Left Internal Mammary, Open Approach (ICD-10-PCS; 2021-02-27)
PROC: 021209W Bypass Coronary Artery, Three Arteries from Aorta with Autologous Venous Tissue, Open Approach (ICD-10-PCS; 2021-02-27)
PROC: 06BQ4ZZ Excision of Left Saphenous Vein, Percutaneous Endoscopic Approach (ICD-10-PCS; 2021-02-27)
PROC: 5A1221Z Performance of Cardiac Output, Continuous (ICD-10-PCS; 2021-02-27)
PROC: B24BZZ4 Ultrasonography of Heart with Aorta, Transesophageal (ICD-10-PCS; 2021-02-27)
PROC: 30233K1 Transfusion of Nonautologous Frozen Plasma into Peripheral Vein, Percutaneous Approach (ICD-10-PCS; 2021-02-27)
PROC: 30233N1 Transfusion of Nonautologous Red Blood Cells into Peripheral Vein, Percutaneous Approach (ICD-10-PCS; 2021-02-27)
PROC: 30233R1 Transfusion of Nonautologous Platelets into Peripheral Vein, Percutaneous Approach (ICD-10-PCS; 2021-02-27)
PROC: 02HV33Z Insertion of Infusion Device into Superior Vena Cava, Percutaneous Approach (ICD-10-PCS; 2021-02-27)
PROC: B548ZZA Ultrasonography of Superior Vena Cava, Guidance (ICD-10-PCS; 2021-02-27)
PROC: 03HY32Z Insertion of Monitoring Device into Upper Artery, Percutaneous Approach (ICD-10-PCS; 2021-02-27)
DX: I25.110 Atherosclerotic heart disease of native coronary artery with unstable angina pectoris (principal); N17.0 Acute kidney failure with tubular necrosis; D62 Acute posthemorrhagic anemia; I10 Essential (primary) hypertension; E11.9 Type 2 diabetes mellitus without complications; Z20.822 Contact with and (suspected) exposure to COVID-19; E78.00 Pure hypercholesterolemia, unspecified; E78.5 Hyperlipidemia, unspecified; G47.33 Obstructive sleep apnea (adult) (pediatric); I65.23 Occlusion and stenosis of bilateral carotid arteries; K21.9 Gastro-esophageal reflux disease without esophagitis; N40.0 Benign prostatic hyperplasia without lower urinary tract symptoms; Z85.46 Personal history of malignant neoplasm of prostate; Z87.891 Personal history of nicotine dependence; Z90.49 Acquired absence of other specified parts of digestive tract; R19.7 Diarrhea, unspecified; Z88.5 Allergy status to narcotic agent; Z79.899 Other long term (current) drug therapy; I48.0 Paroxysmal atrial fibrillation; K30 Functional dyspepsia
CPT/HCPCS: 0232T; 93306; 93312; 93325; 93459; 96374; 96375; 99285; 36415; 36430; 36600; 71045; 71046; 71250; 80047; 80048; 80053; 80061; 82330; 82435; 82800; 82803; 82947; 82948; 83036; 83735; 83880; 84100; 84132; 84295; 84484; 85018; 85025; 85027; 85384; 85610; 85730; 86885; 86900; 86901; 86920; 87081; 87635; 93005; 93880; 93971; 94002; 94010; 94668; 94760; 97110; 97116; 97161; 97530; 99152; 99153; A4618; A4620; A5120; A6258; A6402; A6449; A7000; A7048; C1713; C1751; C1769; C1894; C9113; G0378; J0282; J0690; J1644; J1650; J1815; J1940; J2150; J2250; J2270; J2370; J2405; J2440; J2720; J2795; J2930; J3010; J3370; J3475; J3480; J3490; J7030; J7040; J7050; J7060; J7120; P9016; P9035; P9045; P9047; P9059; Q9967

== ENCOUNTER 2022-08-17 12:34 | Day surgery (SDC) | payer MEDICARE, OTHER ==
[2022-08-17] VITALS (12 sets, daily range): BP systolic 108–155; BP diastolic 54–86
[~2022-08-17] VITALS: Ht 177.8 cm; Wt 92.0 kg
[~2022-08-17 12:34] MED LIST changes: +ALFU10TA10 PO; +AMIO200T67 PO; -ASPI-612 PO; +AZI25OT PO; +CHLO473M2 PO; +CLOB30CR11 TOP; -DIPH-423 PO; +DOCU-391 PO; +HYDR-3972 PO; -HYT1T PO; -LATA2.5D6 RIGHTEYE; +NAPR220T67 PO; +PANT20TA18 PO; -PANT40TA39 PO; -PER5325T PO; +SENN-137 PO
[2022-08-17] MEDS ORDERED: normal saline 1,000 ML IV SCH (13:05)
[2022-08-17] MEDS ORDERED: LORazepam 0.5 MG tablet PO PRN (13:05)
[2022-08-17] MEDS ORDERED: diphenhydrAMINE 25mg capsule PO PRN (13:05)
[2022-08-17 13:29] LABS: BASOPHILS % (AUTO) 0.7 % (0-1); EOSINOPHILS # (AUTO) 0.3 X10'3 (0-0.9); EOSINOPHILS % (AUTO) 5.6 % (0-6); HEMATOCRIT 38.4 % (42.0-52.0); HEMOGLOBIN 12.8 g/dl (14.0-17.9); LYMPHOCYTES % (AUTO) 19.8 % (21-51); MEAN CORPUSCULAR HEMOGLOBIN 31.9 PG (27.0-31.0); MEAN CORPUSCULAR HGB CONC 33.4 g/dL (33.0-36.5); MEAN CORPUSCULAR VOLUME 95.4 FL (78-98); MEAN PLATELET VOLUME 8.8 FL (7.4-10.4); MONOCYTES # (AUTO) 0.5 X10'3 (0-0.9); MONOCYTES % (AUTO) 10.1 % (2-12); NEUTROPHILS # (AUTO) 3.2 X10'3 (1.8-7.7); NEUTROPHILS % (AUTO) 63.8 % (42-75); PLATELET COUNT 181 X10'3 (140-440); RED BLOOD COUNT 4.02 X10'6 (4.70-6.10); RED CELL DISTRIBUTION WIDTH 13.5 % (11.5-14.5); WHITE BLOOD COUNT 5.1 X10'3 (4.5-11.0)
[2022-08-17] MEDS ORDERED: LIDOcaine 1% (10mg/ml)w/preservative inj. 20ml MDV ONE (13:35)
[2022-08-17] MEDS ORDERED: iohexol 350MG/ML 100ml bottle IV ONE (13:35)
[2022-08-17] MEDS ORDERED: fentaNYL/PF 50MCG/1 ML 2ML syringe ONE ×2 (13:35→14:40)
[2022-08-17] MEDS ORDERED: midazolam 1 mg/ML 2ml injection ONE ×2 (13:35→14:40)
[2022-08-17 13:38] LABS: ALBUMIN 3.1 G/DL (3.4-5.0); ANION GAP 5 (8-16); BLOOD UREA NITROGEN 14 MG/DL (7-18); BUN/CREATININE RATIO 13.6 (10.0-20.0); CHLORIDE 107 MMOL/L (99-107); CREATININE 1.03 MG/DL (0.60-1.10); GLUCOSE 100 MG/DL (70-104); POTASSIUM 3.9 MMOL/L (3.5-5.1); SODIUM 139 MMOL/L (135-145); eGFR 69 ML/MIN
[2022-08-17] MEDS ORDERED: proCHLORperazine 10 MG/2 ml inj IV PRN (15:50)
[2022-08-17] MEDS ORDERED: HYDROcodone/acetaminophen 10/325mg tab PO PRN (15:50)
[2022-08-17] MEDS ORDERED: ondansetron/PF 4mg/2ml inj IV PRN (15:50)
[2022-08-17] MEDS ORDERED: HYDROcodone/acetaminophen 5mg/325mg tablet PO PRN (15:50)
[2022-08-17] MEDS ORDERED: OXAZEpam 15mg capsule PO PRN (15:50)
--- NOTE | 2022-08-17 17:51 | NUR ---
Report to MADHU Heath. Pt doing well, no CP or discomfort and (R) groin remains stable.
== END 2022-08-17 20:00 | disposition home or self-care (01) ==
LOC: SSTAY O 12:34
PROVIDERS: ATTEND Student in an Organized Health Care Education/Training Program
DX: R94.39 Abnormal result of other cardiovascular function study (principal); I25.10 Atherosclerotic heart disease of native coronary artery without angina pectoris; I25.82 Chronic total occlusion of coronary artery; G47.33 Obstructive sleep apnea (adult) (pediatric); I65.29 Occlusion and stenosis of unspecified carotid artery; Z87.891 Personal history of nicotine dependence; Z95.1 Presence of aortocoronary bypass graft; Z88.5 Allergy status to narcotic agent; Z79.899 Other long term (current) drug therapy; Z95.5 Presence of coronary angioplasty implant and graft
CPT/HCPCS: 36415; 80048; 85025; 85610; 93005; 93455; 99152; 99153; C1769; J1644; J2250; J3010; J3490; J7030; Q0163; Q9967; C1760

== ENCOUNTER 2022-09-29 13:33 | Outpatient (CLI) | payer MEDICARE, OTHER ==
[~2022-09-29 13:33] MED LIST changes: -AMIO200T67 PO; -ATOR20TA PO; +ATOR40TA PO; -AZI25OT PO; -CHLO473M2 PO; -CLOB30CR11 TOP; -DOCU-391 PO; -HYDR-3972 PO; +HYDR-3973 PO; -SENN-137 PO
== END 2022-09-29 23:59 | disposition home or self-care (01) ==
LOC: RAD 13:33
PROVIDERS: ATTEND Thoracic Surgery (Cardiothoracic Vascular Surgery)
DX: S22.20XK Unspecified fracture of sternum, subsequent encounter for fracture with nonunion (principal); I70.0 Atherosclerosis of aorta; J43.2 Centrilobular emphysema; J98.11 Atelectasis; N28.1 Cyst of kidney, acquired; M40.294 Other kyphosis, thoracic region; M47.814 Spondylosis without myelopathy or radiculopathy, thoracic region; Q79.1 Other congenital malformations of diaphragm; Z90.49 Acquired absence of other specified parts of digestive tract; Z98.890 Other specified postprocedural states; X58.XXXD Exposure to other specified factors, subsequent encounter
CPT/HCPCS: 71250